=== PATIENT | female | born 1940 | race Caucasian/White ===

== ENCOUNTER 2017-02-10 22:14 | Emergency (ER) | payer MEDICARE, OTHER ==
[~2017-02-10] VITALS: Ht 162.6 cm; Wt 70.3 kg
[2017-02-10] MEDS ORDERED: PRAV10TA (22:24)
[2017-02-10] MEDS ORDERED: ATEN25TA (22:24)
[2017-02-10] MEDS ORDERED: ASPI-586 PO (22:24)
[2017-02-10] MEDS ORDERED: SPIR25TA3 (22:24)
[2017-02-10] MEDS ORDERED: ATEN50TA (22:24)
[2017-02-10 22:35] LABS: BILIRUBIN,URINE NEGATIVE (NEGATIVE); KETONES,URINE 2+ (NEGATIVE); LEUKOCYTE ESTERASE ,URINE 3+ (NEGATIVE); NITRITE,URINE POSITIVE (NEGATIVE); PH,URINE 5 (5-9); PROTEIN,URINE 2+ (NEGATIVE); UROBILINOGEN,URINE NORMAL (NORMAL)
--- NOTE | 2017-02-10 22:40 | ED GU-Female ---
General Chief Complaint: -Female Stated Complaint: NAUSEA,BACK PAIN, FEVER Nursing Triage Note: C/O N/V, LOWER BACK PAIN SINCE 02/08/17 Nursing Sepsis Screen: No Definite Risk Source: patient, spouse Exam Limitations: no limitations History of Present Illness Time seen by provider: 22:34 Initial Comments Patient arrived by private conveyance with chief complaint of nausea and vomiting since when she was on at 10 day cruise to [place]. She was seen by the ship's physician and told that she had food poisoning and was given some nausea medicines and a shot of medicine for nausea as well. She says this does not work very well she's had 4 more episodes of vomiting since then. She has no diarrhea, constipation, fevers, chills, rash, pain. She says she has some dull aching in her left back that she gets sometimes when she has a urinary tract infection. She has frequent urinary tract infections in the past been treated with ciprofloxacin by her doctor in [place]. She has no shortness of breath or chest pain. Allergies and Home Medications Allergies Coded Allergies: Sulfa (Sulfonamide Antibiotics) (Verified Allergy, Unknown, 02/10/17) Home Medications Aspirin 81 Mg Tablet.dr, 81 MG PO, (Reported) Atenolol 25 Mg Tablet, (Reported) Pravastatin Sodium 10 Mg Tablet, (Reported) Spironolactone 25 Mg Tablet, (Reported) Constitutional: chills, No diaphoresis, No fever, malaise EENTM: No ear pain, No eye pain Respiratory: No cough, No short of breath Cardiovascular: No chest pain, No palpitations Gastrointestinal: No abdominal pain, No constipation, No diarrhea, nausea, vomiting Genitourinary: denies burning, denies discharge, dysuria : No Musculoskeletal: No back pain, No joint pain Skin: No pruritus, No rash Psychiatric/Neurological: Denies Headache, Denies Numbness, Denies Paresthesia Past [id number] Hx Patient Social History Alcohol Use: Denies Use Recreational Drug Use: No Smoking Status: Never a Smoker 2nd Hand Smoke Exposure: No Recent Foreign Travel: No Contact w/Someone Who Travel: No Recent Infectious Disease Expo: No Recent Hopitalizations: No Immunizations Up To Date Tetanus Booster (TDap): Unknown Seasonal Allergies Seasonal Allergies: No Surgeries History of Surgeries: No Respiratory History of Respiratory Disorde: No Cardiovascular History of Cardiac Disorders: Yes Cardiac Disorders: High Cholesterol, Hypertension Neurological History of Neurological Disord: No Reproductive System : No 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 Genitourinary History of Genitourinary Disor: Yes Genitourinary Disorders: UTI-Chronic Gastrointestinal History of Gastrointestinal Di: No Musculoskeletal History of Musculoskeletal Dis: No Endocrine History of Endocrine Disorders: No HEENT History of HEENT Disorders: No Cancer History of Cancer: No Psychosocial History of Psychiatric Problem: No Integumentary History of Skin or Integumenta: No Blood Transfusions History of Blood Disorders: No Physical Exam Vital Signs Vital Sign - Last 12Hours 02/10/17 22:25 Temp 96.7 Pulse 90 Resp 18 B/P (MAP) 140/64 Pulse Ox 99 O2 Delivery Room Air Capillary Refill : Less Than 3 Seconds General Appearance: WD/WN, no apparent distress HEENT: PERRL/EOMI, pharynx normal Neck: non-tender, normal inspection Cardiovascular: normal peripheral pulses, regular rate, rhythm Respiratory: chest non-tender, lungs clear, normal breath sounds Gastrointestinal: non tender, soft Back: normal inspection, no vertebral tenderness, CVA tenderness (L) Extremities: normal range of motion, non-tender, normal inspection, normal capillary refill Neurologic/Psychiatric: alert, oriented x 3 Skin: normal color, warm/dry Progress/Results/Core Measures Results/Orders Lab Results Laboratory Tests Test 02/10/17 22:25 Range/Units Urine Color YELLOW Urine Clarity SLIGHTLY CLOUDY Urine pH 5 5-9 Urine Specific [place] 1.015 L 1.016-1.022 Urine Protein 2+ H NEGATIVE Urine Glucose (UA) NEGATIVE NEGATIVE Urine Ketones 2+ H NEGATIVE Urine Nitrite POSITIVE H NEGATIVE Urine Bilirubin NEGATIVE NEGATIVE Urine Urobilinogen NORMAL NORMAL MG/DL Urine Leukocyte Esterase 3+ H NEGATIVE Urine RBC (Auto) 4+ H NEGATIVE Urine RBC 0-2 /HPF Urine WBC 25-50 H /HPF Urine Squamous Epithelial Cells 0-2 /HPF Urine Crystals NONE /LPF Urine Bacteria LARGE H /HPF Urine Casts NONE /LPF Urine Mucus NEGATIVE /LPF Urine Culture Indicated YES My Orders Orders - LICHA ESTEVES Ua Culture If Indicated (02/10/17 22:30) Ondansetron Oral Dissolve Tab (Zofran (02/10/17 22:45) Urine Culture (02/10/17 22:25) Medications Given in ED Current Medications Medications Dose Ordered Sig/George Route Start Time Stop Time Status Last Admin Dose Admin Ondansetron HCl 4 mg ONCE ONCE PO 02/10/17 22:45 02/10/17 22:46 DC 02/10/17 22:41 4 MG Vital Signs/I&O Vital Sign - Last 12Hours 02/10/17 22:25 Temp 96.7 Pulse 90 Resp 18 B/P (MAP) 140/64 Pulse Ox 99 O2 Delivery Room Air Blood Pressure Mean: 89 Departure Impression Impression: Primary Impression: Urinary tract infection Qualified Codes: N30.01 - Acute cystitis with hematuria Disposition: HOME, SELF-CARE Condition: Stable Departure-Patient Inst. Decision time for Depature: 23:07 Referrals: JOAQUÍN CERVANTES MD (PCP/Family) Primary Care Physician Patient Instructions: Urinary Tract Infection, Adult (DC) Add. Discharge Instructions: Drink copious amounts of fluids. Take your antibiotics twice a day to completion. If you're having new or worsening symptoms or symptoms or not gone by the time you are done with the antibiotics then you should follow-up with your primary care physician. If you start having severe fevers, nausea and vomiting or are unable to tolerate your medicines you can return to the ER. You' ll be given Zofran to be placed under the tongue every 6 hours as needed to control your nausea. All discharge instructions reviewed with patient and/or family. Voiced understanding. Scripts Ondansetron (Ondansetron Odt) 4 Mg Tab.rapdis 4 MG PO Q6H Y for NAUSEA/VOMITING, #8 TAB 0 Refills Prov: LICHA ESTEVES 02/10/17 Cephalexin (Cephalexin) 500 Mg Tablet 500 MG PO BID for 7 Days, #14 TAB 0 Refills Prov: LICHA ESTEVES 02/10/17 LICHA ESTEVES Feb 10, 2017 22:40
[2017-02-10] MEDS: ONDANSETRON 4 MG (ZOFRAN) ORAL DISSOLVE TAB PO ONE (22:41)
[2017-02-10 22:44] LABS: SQUAMOUS EPITHELIAL CELL,UR 0-2 /HPF; WBC,URINE 25-50 /HPF
[2017-02-10] MEDS ORDERED: CEPH500T PO (23:09)
[2017-02-10] MEDS ORDERED: ONDA4TAB11 PO (23:09)
[2017-02-10] MEDS: CEPHALEXIN 250 MG (KEFLEX) CAP PO ONE ×2 (23:17→23:18)
[2017-02-10] MEDS: RX-ONDANSETRON 4 MG ODT (ZOFRAN) PPK #4 PO STA (23:17)
[2017-02-10] MEDS: RX-ONDANSETRON 4 MG ODT (ZOFRAN) PPK #4 ONE (23:18)
[2017-02-10 23:19] VITALS: BP 140/64
== END 2017-02-10 23:12 | disposition home or self-care (01) ==
LOC: EDUNIT# 22:14 → ER 22:16
DX: N39.0 Urinary tract infection, site not specified (principal); E78.00 Pure hypercholesterolemia, unspecified; I10 Essential (primary) hypertension
CPT/HCPCS: 81000; 87077; 87088; 87186; 99283

== ENCOUNTER → 2020-11-25 | Outpatient (CLI) | payer MEDICARE, OTHER ==
[~2020-11-25] MED LIST: ASPI-586 PO; ATEN25TA; ATEN50TA; CEPH500T PO; ONDA4TAB11 PO; PRAV10TA; SPIR25TA5
--- NOTE | 2020-11-25 18:24 | Diagnostic Imaging Report ---
Clinical indication: Patient with left leg pain. Comparison: None. Procedure: Real-time left lower extremity venous Doppler duplex evaluation is performed from the inguinal region through the popliteal fossa. The calf venous structures are also evaluated. Findings: The deep venous system is well visualized and is easily compressible. There is no evidence of deep venous thrombosis, valvular incompetence, or significant collateral circulation. There is a 5.5 cm x 3.4 cm cyst in the left popliteal fossa region. Impression: 1: There is no ultrasound Doppler evidence of deep venous thrombosis in the left lower extremity. 2: Left popliteal fossa Randhawa's cyst. Dictated by: Dictated on workstation # [id number]
== END ==
LOC: RAD 16:00
PROVIDERS: ATTEND Family Medicine
DX: M71.22 Synovial cyst of popliteal space [Baker], left knee (principal)